=== PATIENT | female | born 1970 | race Two or more races ===

== ENCOUNTER 2019-08-12 16:31 | Inpatient (IN) | payer MEDICAID, OTHER ==
[~2019-08-12] VITALS: Ht 149.9 cm; Wt 58.4 kg
[2019-08-12] MEDS ORDERED: diphenhydrAMINE 50 mg/ml inj IM ONE (17:50)
[2019-08-12] MEDS ORDERED: LORazepam 2 mg/ml vial IM ONE (17:50)
[2019-08-12] MEDS ORDERED: OLANZapine **IM** 10 mg inj. IM ONE ×2 (17:50→17:52)
[2019-08-12] MEDS ORDERED: LORazepam 2 mg/ml vial ONE (17:54)
[2019-08-12] MEDS ORDERED: diphenhydrAMINE 50 mg/ml inj ONE (17:55)
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
[2019-08-12] MEDS ORDERED: acetaminophen 325mg tablet PO PRN ×2 (18:55)
[2019-08-12] MEDS ORDERED: magnesium hydroxide 30ml (MOM) UD suspension PO PRN (18:55)
[2019-08-12] MEDS ORDERED: NICOTINE POLACRILEX 2 MG LOZENGE BC PRN (18:55)
[2019-08-12] MEDS ORDERED: loperamide 2mg capsule PO PRN (18:55)
[2019-08-12] MEDS ORDERED: mag hydrox/Alum hydrox/simeth 30ml oral suspension PO PRN (18:55)
[2019-08-12] MEDS ORDERED: traZODone 50mg tablet PO PRN (18:55)
[2019-08-12] MEDS ORDERED: LORazepam 1 MG tablet PO PRN (18:55)
[2019-08-12] MEDS ORDERED: quetiapine 100mg tablet PO PRN (18:55)
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
[2019-08-13 08:00] VITALS: BP 89/46
[2019-08-13] MEDS: nicotine 21mg patch - 24 hr TD SCH (08:00)
--- NOTE | 2019-08-13 09:00 | NUR ---
Pt has been sleeping on her back with a blanket covering her face and no sheet under her since start of shift. RR 12 even and unlabored. Pt allowed to continue to sleep. HOLD Nicotine patch for when she is awake.
--- NOTE | 2019-08-13 11:55 | NUR ---
Malnutrition consult. No weight history or current weight. Refused two meals, ate 100% of two other meals. No edema. Had not eaten for 24 hours per nursing report d/t fear of the food being poisoned. Per physical assessment nutrition risk is "adequate." does not fit picture or criteria of malnutrition at this time. Will follow. Addendum: 08/13/19 at [address] Amended: Links added.
[2019-08-13 12:09] LABS: HEMOGLOBIN A1C 5.8 % (4.5-6.2)
[2019-08-13 12:16] LABS: CHOL/HDL RATIO 1.9 (0.00-4.99); CHOLESTEROL 168 MG/DL (0-200); HDL CHOLESTEROL 90 MG/DL (35-60); LDL CHOLESTEROL 69 MG/DL (50-100); TRIGLYCERIDES 18 MG/DL (20-135)
--- NOTE | 2019-08-13 17:13 | NUR ---
NURSING PROGRESS NOTE Legal hold: 5150 Client on involuntary status for GD Report received report from nurse with use of SBAR. Why are they here: Pt brought to the unit from [facility] by pending sale to [facility] transportation. Per Sonia Shijiebang. SO pt broke into a vacant residence and would not leave when asked to. She states she was "looking for her children." She told SO someone was out to kill her. She then hit herself in the nose and said, "they are going to kill me." Assessment What has happened this shift: Pt slept until breakfast. She ate her meal in her room then slept more. She came out and ate lunch in the community room. She was cooperative with lab draws. Denies smoking so refused the nicotine patch. During the physical part of her assessment while listening to bowel sounds pt told this underwriter mortgage loan, "I am , be careful." She was thirsty today continually requesting juice. S/I, H/I: Denies A/VH: Denies, however she believes she is Sleep:slept most of this shift ADL's:still has not showered Group attendance:no, slept Were meds taken:none prescribed Any med S/E: N/A Mental Status Exam Appearance: rojas haired petite woman still wearing the same clothes as admitted in, a skirt, no t-shirt carrying a baseball hat with the [place] flag on it. Eye contact:fair Behavior:isolates, guarded, paranoid Speech:normal rate and rhythm Mood:depressed Affect:congruent, dysphoric, restricted Thought process:thought blocking Thought Content:paranoid delusions Cognition:A/O Insight:poor Judgment:poor Interventions PRN's used:pt is calm N/A Therapeutic interventions:provided 1:1 assessment, therapeutic communication w/active listening, monitored behavior, and q 15min safety checks. Restraints/seclusion/emergency medication:N/A Justification:Pt is homeless and gravely disabled with paranoid delusions. She is in need of mental health treatment and stabilization to prevent rehospitalization and decompensation.
[2019-08-13 20:00] VITALS: BP 88/56
--- NOTE | 2019-08-14 01:15 | NUR ---
Nursing Progress Note: Legal hold: 5150 Client on involuntary status for GD Report received report from JUAN MIGUEL Altamirano with use of SBAR. Why are they here: Pt brought to the unit from [facility] by [facility] transportation. Per [place] [employer] SO pt broke into a vacant residence and would not leave when asked to. She states she was "looking for her children." She told SO someone was out to kill her. She then hit herself in the nose and said, "they are going to kill me." Assessment What has happened this shift: The patient was seen for 1:1 after she had showered. She still claims that she was looking for her children at the house, and that it's her house. She didn't have much to say, but asked for juice multiple times. The patient did not mention being or having people trying to kill her. She was out of her room to grab a snack, but went straight back to her room. S/I, H/I: Denies A/VH: Denies Sleep: See sleep assessment ADL's: Self Group attendance: No Were meds taken: Nothing scheduled Any med S/E: N/A Mental Status Exam Appearance: Black haired woman, freshly showered, hair brushed, wearing unit green scrubs. Eye contact: Fair Behavior: Isolative, guarded, delusional Speech: Normal rate and rhythm Mood: Depressed Affect: Restricted Thought process: Thought blocking Thought Content: Paranoid delusions Cognition:A/O Insight: Poor Judgment: Poor Interventions PRN's used: Therapeutic interventions:provided 1:1 assessment, therapeutic communication w/active listening, monitored behavior, and q 15min safety checks. Restraints/seclusion/emergency medication:N/A Justification:Pt is homeless and gravely disabled with paranoid delusions. She is in need of mental health treatment and stabilization to prevent rehospitalization and decompensation.
[2019-08-14 07:49] VITALS: BP 90/60
[2019-08-14] MEDS: nicotine 21mg patch - 24 hr TD SCH (08:00)
--- NOTE | 2019-08-14 13:29 | NUR ---
Additional consult received re: paranoia and fear of being poisoned. Per nursing notes patient is asking for juice and eating snacks. Documented as eating well. Recommend to honor food preferences. If PO Intake declines recommend trial of prepackaged foods. Addendum: 08/14/19 at [address] Amended: Links added.
--- NOTE | 2019-08-14 14:55 | NUR ---
NURSING PROGRESS NOTE Legal hold: 5150 Client on involuntary status for GD Report received report from nurse with use of SBAR. Why are they here: Pt brought to the unit from [facility] by [facility]. Per [facility]. SO pt broke into a vacant residence and would not leave when asked to. She states she was "looking for her children." She told SO someone was out to kill her. She then hit herself in the nose and said, "they are going to kill me." Assessment What has happened this shift: Pt slept until breakfast. She ate her meals in the community room with the other patients. She slept in between her meals. She showered, put on clean hospital scrubs and staff assisted her with getting her clothes washed. During AM assessment pt said, "I left my one year old baby with my neighbor, I need to go home." S/I, H/I: Denies A/VH: Denies Sleep:slept most of this shift ADL's: Showered, washed clothes Group attendance: No Were Meds taken: No Any med S/E: N/A Mental Status Exam Appearance: black and rojas haired petite woman in hospital clothes Eye contact:fair Behavior: Isolates, guarded, paranoid Speech: normal rate and rhythm Mood: depressed Affect: congruent, dysphoric Thought process: unknown, quiet Thought Content: wants to be discharged Cognition:A/O Insight:poor Judgment:poor Interventions PRN's used:pt is calm N/A Therapeutic interventions:provided 1:1 assessment, therapeutic communication w/active listening, monitored behavior, and q 15min safety checks. Restraints/seclusion/emergency medication:N/A Justification:Pt is homeless and gravely disabled with paranoid delusions. She is in need of mental health treatment and stabilization to prevent rehospitalization and decompensation.
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
[2019-08-14 20:26] VITALS: BP 91/59
--- NOTE | 2019-08-15 00:29 | NUR ---
Nursing Progress Note: Legal hold: 5150 Client on involuntary status for GD Report received report from JUAN MIGUEL Altamirano with use of SBAR. Why are they here: Pt brought to the unit from [facility] by [facility] transportation. Per [place] [employer] SO pt broke into a vacant residence and would not leave when asked to. She states she was "looking for her children." She told SO someone was out to kill her. She then hit herself in the nose and said, "they are going to kill me." Assessment What has happened this shift: The patient was seen for 1:1 at bedside after she took a shower. She does not initiate conversation, unless she is asking for something. She did not answer when asked about her children. She stays isolated to her room, unless it's snack time and she eats in the group room. She has no scheduled medications and goes to sleep after snack time. S/I, H/I: Denies A/VH: Denies Sleep: See sleep assessment ADL's: Self Group attendance: No Were meds taken: Nothing scheduled Any med S/E: N/A Mental Status Exam Appearance: Black haired woman with rojas streaks, freshly showered, hair brushed, wearing unit green scrubs. Eye contact: Fair Behavior: Isolative, guarded, delusional Speech: Normal rate and rhythm Mood: Depressed Affect: Restricted Thought process: Thought blocking Thought Content: Paranoid delusions Cognition:A/O Insight: Poor Judgment: Poor Interventions PRN's used: Therapeutic interventions:provided 1:1 assessment, therapeutic communication w/active listening, monitored behavior, and q 15min safety checks. Restraints/seclusion/emergency medication:N/A Justification:Pt is homeless and gravely disabled with paranoid delusions. She is in need of mental health treatment and stabilization to prevent rehospitalization and decompensation.
[2019-08-15 07:00] VITALS: BP 105/58
[2019-08-15] MEDS: nicotine 21mg patch - 24 hr TD SCH (08:42)
--- NOTE | 2019-08-15 12:03 | NUR ---
CM Presenting Issues: Pt's 5150 expires this evening, pt is requesting assistance w/dcp activities. Pt's admitted under 5150 due to GD condition. Interventions: SS met w/pt, she present with linear tp, continues to express worries about her children. Pt was able to provide more info re her support sxs and resources. Per session, pt would like to return to her trailer in [facility] following d/c and she wants to check in w/her social services technician @ the [facility] to get support for sorting out issues with her children. Pt also has support from her christianity there. Pt reports that she plans to return to her jobs and continue to save money to move into a bigger home that can accommodate her & her children. Pt denies any current SI/HI/AH. She reports some depression because she misses her children. Plan: SS will consult w/MD re d/c vs 5250. Coordinate dcp w/[facility] services. Isabelle Kemp LCSW Addendum: 08/15/19 at 1233 by Isabelle Kemp Amended: Links added.
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
[2019-08-15 20:00] VITALS: BP 100/58
--- NOTE | 2019-08-15 23:43 | NUR ---
Nursing Progress Note: Legal hold: Voluntary Client on voluntary status for GD Report received report from JUAN MIGUEL Youngblood with use of SBAR. Why are they here: Pt brought to the unit from [facility] by [facility] transportation. Per [place] SO pt broke into a vacant residence and would not leave when asked to. She states she was "looking for her children." She told SO someone was out to kill her. She then hit herself in the nose and said, "they are going to kill me." Assessment What has happened this shift: The patient's 5150 was up today. She signed papers to be here voluntarily. She reports that she will leave tomorrow, "I miss my family and friends. I want to see them." She stayed mostly in her room tonight, but her roommate got extremely agitated that the patient because she washes her hands and shakes them a bit before drying. The roommate believes she does this on purpose to get water on the floor, so she'll slip and fall. The patient handled the situation well, and went to bed after snacks and HS med pass. S/I, H/I: Denies A/VH: Denies Sleep: See sleep assessment ADL's: Self Group attendance: No Were meds taken: Nothing scheduled Any med S/E: N/A Mental Status Exam Appearance: Black haired woman with rojas streaks, hair brushed with a rojas cap and wearing unit green scrubs. Eye contact: Fair Behavior: Isolative, guarded, delusional Speech: Normal rate and rhythm Mood: Depressed Affect: Restricted Thought process: Thought blocking Thought Content: Paranoid delusions Cognition:A/O Insight: Poor Judgment: Poor Interventions PRN's used: Therapeutic interventions:provided 1:1 assessment, therapeutic communication w/active listening, monitored behavior, and q 15min safety checks. Restraints/seclusion/emergency medication:N/A Justification:Pt is homeless and gravely disabled with paranoid delusions. She is in need of mental health treatment and stabilization to prevent rehospitalization and decompensation.
[2019-08-16 07:37] VITALS: BP 93/60
--- NOTE | 2019-08-16 17:36 | NUR ---
NURSING PROGRESS NOTE Legal hold: Voluntary Client on involuntary status for GD Report received report from JUAN MIGUEL Cruz with use of SBAR. Why are they here: Pt brought to the unit from [facility] by [facility]. Per [place] [employer] SO pt broke into a vacant residence and would not leave when asked to. She states she was "looking for her children." She told SO someone was out to kill her. She then hit herself in the nose and said, "they are going to kill me." Assessment What has happened this shift: Received patient sleeping in her room, respirations even and unlabored. Patient is up for breakfast and patio break. Patient denies SI/HI/AH/VH. Patient does not engage in conversation and presents as guarded. Pt. Just repeats I am leaving today. Pt. is visible on unit and observed pacing halls listening to headset. Patient eats 100% of all meals and snack. She is compliant with care and has no scheduled medications, no PRNs needed. Patient is discharged today and awaiting transportation from [facility]. S/I, H/I: Denies both. A/VH: Denies both. Sleep: 8.5 hrs per Sleep Assessment, No naps this shift. ADL's: Independent. Group attendance: Did not attend group. Were Meds taken: None ordered. Any med S/E: N/A Mental Status Exam Appearance: Clean, neat, wearing appropriate personal attire and ball cap. Eye contact: Fair Behavior: Isolates, guarded, paces juárez listening to headset. Speech: Clear, normal rate/rhythm, speaks with accent Mood: Euthymic Affect: Congruent with mood Thought process: Circumstantial. Thought Content: Being discharged. Cognition: A&O x3 Insight: Poor Judgment: Poor Interventions PRN's: None. Therapeutic interventions:provided 1:1 assessment, therapeutic communication w/active listening, monitored behavior, and q 15min safety checks. Restraints/seclusion/emergency medication: N/A Justification: Patient is homeless and gravely disabled with paranoid delusions. She is in need of mental health treatment and stabilization to prevent rehospitalization and decompensation.
--- NOTE | 2019-08-16 18:11 | NUR ---
Patient's packed lunch for discharge is in refrigerator.
--- NOTE | 2019-08-16 19:00 | NUR ---
Pt discharged to [facility], pt given all belongings, she has no meds, she has her discharge instructions and knows to follow up with [facility].
== END 2019-08-16 19:00 | disposition home or self-care (01) | DRG 751 ==
LOC: ADULT MH 17:20
PROVIDERS: ADMIT Psychiatry & Neurology Psychiatry; ATTEND Psychiatry & Neurology Psychiatry
DX: F23 Brief psychotic disorder (principal); Z79.899 Other long term (current) drug therapy
CPT/HCPCS: 36415; 80061; 83036; J1200; J2060; J3490